=== PATIENT | female | born 1970 | race Caucasian/White ===

== ENCOUNTER 2017-09-03 08:32 | Outpatient (CLI) | payer BC ==
--- NOTE | 2017-09-03 10:02 | CT ---
CT ABDOMEN WITH AND WITHOUT IV CONTRAST: CT PELVIS WITH AND WITHOUT IV CONTRAST: 09/03/2017 HISTORY: Recurrent urinary tract infections. History of vesicoureteral reflux. 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 History of gastric sleeve procedure and cholecystectomy. FINDINGS: The visualized lung bases are clear. Post surgical changes related to cholecystectomy and gastric sleeve procedure are noted. There is a focal area of scarring seen within the superior pole right kidney. There is a subcentimet er calcification seen in the upper pole, right kidney, which is in the region of scarring, likely rel ated to a cortically based calcification. No renal or ureteral calculus is visualized, and there is no evidence of hydronephrosis. 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 A duplicated ureter is also seen on the right on IVP following thi s exam, but is less well seen on this CT exam. The urinary bladder is partially distended and normal in appearance. The liver, pancreas, bilateral adrenal glands, left kidney, and abdominal aorta have a normal CT appe arance. Calcified granulomata are seen in the spleen. The uterus and adnexal structures demonstrate a normal appearance. There is calcification seen betwe en the uterus and the urinary bladder, but the calcification is external to the urinary bladder. Non dilated loops of small bowel are present. There is a focal area of mild intussusception involvin g a loop of jejunum in the left mid abdomen. There is no evidence of a bowel obstruction. This coul d potentially be related to a transient finding. [id number], there is evidence of a focal small bowel intussusception. No free fluid, fluid collection, or lymphadenopathy is seen in the abdomen or pelvis. Mild degenerative changes are seen in the lower lumbar spine. IMPRESSION: 1. No renal or ureteral calculi are seen bilaterally, and there is no evidence of hydronephrosis. 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 2. Focal area of scarring, superior pole, right kidney, with associated cortically based calcificati on. 3. No evidence of hydronephrosis, and no enhancing renal mass is visualized. 4. The urinary bladder is incompletely distended. The gonzalez appear mildly thickened, but this is li shreya related to incomplete distention. 5. Focal small bowel intussusception involving the jejunum in the left mid abdomen. This may potent ially represent a transient finding. There is no evidence of a bowel obstruction. 6. Post surgical changes related to gastric sleeve procedure and cholecystectomy. POS: BALTA
--- NOTE | 2017-09-03 11:01 | RAD ---
IVP: DATE: 09/03/17. HISTORY: Recurrent urinary tract infections, history of vesicoureteral reflux. History of valve replacement r ight ureter. FINDINGS: This examination was performed after CT of the abdomen and pelvis. 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 Renal shadows are mostly obscured by overlying bowel gas. Th ere is nonspecific bowel gas pattern. Mild degenerative changes are seen in the lower lumbar spine. Surgical clips overlie the upper abdomen. IVP: There are prompt and symmetric nephrograms at 5 minutes with contrast seen in each renal collecting s ystem. There are completely duplicated bilateral renal collecting systems with each ureter extending to the level of the urinary bladder. There is no evidence of hydronephrosis. No definite persisten t filling defect is seen. The urinary bladder is partially distended and has a normal appearance. P ostvoid image demonstrates only minimal postvoid residual. While there is persistent contrast renal collecting systems, there is no evidence of hydronephrosis. 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 POS: BALTA
[2017-09-03] MEDS ORDERED: Iopamidol 370 76% 100 ML VIAL ONE (13:36)
== END 2017-09-03 08:33 | disposition home or self-care (01) ==
LOC: RAD 08:32
PROVIDERS: ATTEND Urology
DX: N39.0 Urinary tract infection, site not specified (principal); N28.89 Other specified disorders of kidney and ureter; N32.89 Other specified disorders of bladder; K56.1 Intussusception; Z90.49 Acquired absence of other specified parts of digestive tract; Z87.448 Personal history of other diseases of urinary system; Z98.890 Other specified postprocedural states
CPT/HCPCS: 74178; 74410

== ENCOUNTER 2017-12-31 07:29 | Outpatient (CLI) | payer BC ==
--- NOTE | 2017-12-31 11:50 | RAD ---
VCG: INDICATIONS: History of prior ureteral reimplantation with recurrent UTIs. TECHNIQUE: A red rubber catheter was placed within the bladder by the radiology nurse prior to the procedure. S cout images were performed of the abdomen and pelvis, and 500 mL of Uropaque solution was administere d into the bladder, in a retrograde fashion, with the use of gravity. Fill images were obtained in t he AP and oblique projections. An attempt was made to fluoroscopically evaluate the patient during v oiding; however, the patient had difficulty micturating on the fluoroscopy table. The catheter was r emoved. The patient evacuated fully on the toilet and immediately came back for post evacuation imag es. FINDINGS: [employer] images demonstrate surgical clips within the upper abdomen. There is a mild amount of retained stool within the colon. The bowel gas pattern is unobstructed. No suspicious calcification is evid ent. 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 Early fill image s demonstrate no focal filling defect. Maximal fill images demonstrate no definite bladder contour a bnormality. The post evacuation images demonstrate no vesicoureteral reflux. Urethral images were n ot obtained due to the patient's inability to void on the fluoroscopy table. IMPRESSION: 1. No focal filling defect or contour abnormality of the bladder. 2. No evidence of vesicoureteral reflux. 3. Some limitations of the exam, as above. POS: BALTA
== END 2017-12-31 07:30 | disposition home or self-care (01) ==
LOC: RAD 07:29
PROVIDERS: ATTEND Urology
DX: N39.0 Urinary tract infection, site not specified (principal); Q62.5 Duplication of ureter; Z98.890 Other specified postprocedural states; Z87.448 Personal history of other diseases of urinary system
CPT/HCPCS: 51600; 74455

== ENCOUNTER 2018-10-19 10:09 | Outpatient (CLI) | payer BC ==
--- NOTE | 2018-10-21 13:50 | MMO ---
Bilateral MAMMO Bilat Screen [facility]. CLINICAL HISTORY: Patient is 48 years old and is seen for screening. The patient has the following family history of breast cancer: paternal grandmother, at age 80, malignant (generic). The patient has no personal history of cancer. VIEWS: The views performed were: bilateral craniocaudal and bilateral mediolateral oblique. FILMS COMPARED: The present examination has been compared to prior imaging studies performed at [facility] on 01/09/2015, 07/17/2015, 01/30/2016 and 08/24/2017. This study has been interpreted with the assistance of computer-aided detection. MAMMOGRAM FINDINGS: There are scattered fibroglandular densities. There are no suspicious masses, suspicious calcifications, or new areas of architectural distortion. IMPRESSION: THERE IS NO MAMMOGRAPHIC EVIDENCE OF MALIGNANCY. A ROUTINE FOLLOW-UP MAMMOGRAM IN 1 YEAR IS RECOMMENDED. ACR BI-RADS Category 1 - Negative MAMMOGRAPHY NOTE: 1. A negative mammogram report should not delay a biopsy if a dominant of clinically suspicious mass is present. 2. Approximately 10% to 15% of breast cancers are not detected by mammography. 3. Adenosis and dense breasts may obscure an underlying neoplasm.
== END 2018-10-19 10:10 | disposition home or self-care (01) ==
LOC: SCSMAMMO 10:09
PROVIDERS: ATTEND Family Medicine
DX: Z12.31 Encounter for screening mammogram for malignant neoplasm of breast (principal); Z80.3 Family history of malignant neoplasm of breast
CPT/HCPCS: 77067

== ENCOUNTER 2020-10-30 14:20 | Outpatient (CLI) | payer BC ==
[2020-10-30 15:17] LABS: #Eosinphils 0.1 10x3/uL (0.0-0.5); #Monocytes 0.4 10x3/uL (0.0-1.1); #Neutrophils 4.6 10x3/uL (1.5-8.4); %Basophils 0.6 % (0.0-2.0); %Eosinophils 1.4 % (0.0-6.0); %Lymphocytes 28.3 % (18.0-47.0); %Monocytes 5.6 % (0.0-10.0); Hemoglobin 13.5 g/dL (12.0-15.5); Mean Corpuscular HGB CONC 33.3 g/dL (32.0-36.0); Mean Corpuscular Volume 93.1 fl (81.6-98.3); Mean Platelet Volume 9.8 fl (7.4-10.4); Platelet Count 371 10x3/uL (150-450); Red Blood Cell (RBC) Count 4.36 10x6/uL (3.90-5.03); White Blood Cell (WBC) Count 7.2 10x3/uL (3.5-10.5)
[2020-10-30 15:17] LABS: Bilirubin Neg (Negative); Blood, Urine Negative (Negative); Clarity Clear (Clear); Glucose, Urine (Dipstick) Normal (Negative); Ketone, Urine Negative (Negative); Leukocyte 25 (Negative); Nitrite Negative (Negative); Protein, Urine (Dipstick) Negative (Neg-Trace); Urobilinogen Normal mg/dL (Less than 2)
[2020-10-30 16:02] LABS: Bacteria/HPF 1+ HPF (None Seen); RBC/HPF 0-3 HPF (0-3); Squamous Epithelial 0-3 HPF (0-3); Transitional Epithelial 0-3 HPF (None Seen); WBC/HPF 0-3 HPF (0-3)
== END 2020-10-30 14:21 | disposition home or self-care (01) ==
LOC: LABBT 14:20
PROVIDERS: ATTEND Orthopaedic Surgery Hand Surgery
DX: Z01.818 Encounter for other preprocedural examination (principal); M19.042 Primary osteoarthritis, left hand
CPT/HCPCS: 81001; 85025; 93005; 93010

== ENCOUNTER 2020-11-02 10:37 | Day surgery (SDC) | payer BC ==
[2020-11-01 12:41] VITALS: BMI 30.9
[2020-11-02] MEDS ORDERED: Betamet Acet/Betamet Na Ph 30 MG/5 ML VIAL ONE (11:11)
[2020-11-02] MEDS ORDERED: Neomycin-Polymyxin 1 ML AMP ONE (11:11)
[2020-11-02] MEDS ORDERED: Bupivacaine PF 0.5% 30 ML VIAL ONE (11:11)
[2020-11-02] MEDS ORDERED: Bacitracin Zinc Ointment 30 gm TUBE ONE (11:11)
[2020-11-02] MEDS ORDERED: Clindamycin/D5W 600 mg/50 ml Premix Bag ONE (11:20)
[2020-11-02] MEDS ORDERED: Fentanyl 100 MCG/2 ML VIAL ONE ×2 (11:29→11:43)
[2020-11-02] MEDS ORDERED: Midazolam HCl 2 mg/2 ml Vial ONE ×2 (11:29→11:43)
[2020-11-02] MEDS ORDERED: PROPOFOL 200 MG/20 ML VIAL ONE (12:37)
[2020-11-02] MEDS ORDERED: Lidocaine 1% PF 5 ML VIAL ONE (12:37)
[2020-11-02] MEDS ORDERED: Bupivacaine HCl 0.5%/Epinephrine 1:200,000/PF 30 ml Vial ONE (12:37)
[2020-11-02] MEDS ORDERED: Ondansetron PF 4 MG/2 ML Vial ONE (12:37)
[2020-11-02] MEDS ORDERED: Ketorolac Tromethamine 30 MG/ML VIAL ONE (15:26)
== END 2020-11-02 17:05 | disposition home or self-care (01) ==
LOC: SDC 10:37
PROVIDERS: ATTEND Orthopaedic Surgery Hand Surgery
PROC: 0LX60ZZ Transfer Left Lower Arm and Wrist Tendon, Open Approach (ICD-10-PCS; principal; 2020-11-02)
PROC: 0RUT07Z Supplement Left Carpometacarpal Joint with Autologous Tissue Substitute, Open Approach (ICD-10-PCS; principal; 2020-11-02)
PROC: 3E0T3BZ Introduction of Anesthetic Agent into Peripheral Nerves and Plexi, Percutaneous Approach (ICD-10-PCS; principal; 2020-11-02)
DX: M18.12 Unilateral primary osteoarthritis of first carpometacarpal joint, left hand (principal); G89.18 Other acute postprocedural pain; Z87.891 Personal history of nicotine dependence; Z79.899 Other long term (current) drug therapy; Z88.0 Allergy status to penicillin; Z88.2 Allergy status to sulfonamides; Z91.048 Other nonmedicinal substance allergy status
CPT/HCPCS: 76000; C1713; J0702; J1885; J2250; J2405; J2704; J3010; J3490; S0020

== ENCOUNTER 2023-06-26 12:20 | Outpatient (CLI) | payer BC | END 2023-06-26 12:21 | disposition home or self-care (01) | LOC: SCSRAD 12:20 | PROVIDERS: ATTEND Internal Medicine Rheumatology | DX: M46.1 Sacroiliitis, not elsewhere classified (principal) | CPT/HCPCS: 72202 ==